=== PATIENT | male | born 1975 | race Caucasian/White ===

== ENCOUNTER → 2021-09-06 | Emergency (ER) | payer OTHER ==
[~2021-09-06] MED LIST: ZITHROMAX250 MG PO; ZYRTEC10 MG PO
== END | disposition home or self-care (01) ==
LOC: ER1 04:22
DX: H66.91 Otitis media, unspecified, right ear (principal); F17.210 Nicotine dependence, cigarettes, uncomplicated; Z88.0 Allergy status to penicillin
CPT/HCPCS: 99282